=== PATIENT | female | born 1960 | race Caucasian/White ===

== ENCOUNTER 2016-12-30 21:21 | Emergency (ER) | payer OTHER ==
[2016-12-30 21:53] VITALS: BP 114/80; PULSE 104; TEMP 98.3; BMI 22.3
--- NOTE | 2016-12-30 22:45 | PDOC ---
History of Present Illness - General History Source: Patient Exam Limitations: No Limitations - History of Present Illness Initial Comments: 12/30/16 23:02 The patient is a 56 year old female with significant past medical history of B/ L kidney stone and asthma who presents to the ED for 3 days of back pain s/p injury. Patient reports trauma to the back and subsequently developed pain that radiates up and down her back. Denies paresthesias or bladder/bowel incontinence. She also reports developed left lower quadrant pain 3 days ago with associated bloating, but no nausea, vomiting, or diarrhea. She took acetaminophen with slight improvement. Patient reports today she had a fever tmax 100.2, which she took tylenol for with improvement. She also reports dizziness, chest discomfort, and frequency, but no hematuria or dysuria. The patient denies chills, cough, SOB, and palpitations. Allergies: aspirin Social History: No alcohol, tobacco, or drug use reported. Past Surgical History: bilateral foot sx PCP: Dr. Matthew Gonzalez <Caterina Richardson - Last Filed: 12/31/16 01:13> - General History Source: Patient <Ciro Edge - Last Filed: 12/31/16 01:20> - General Chief Complaint: Back Pain Stated Complaint: FEVER/DIZZINESS/BACK PAIN Time Seen by Provider: 12/30/16 22:31 Past History <Caterina Richardson - Last Filed: 12/31/16 01:13> - Past Medical History Anemia: No Asthma: Yes Cancer: No Cardiac Disorders: No CVA: No COPD: No CHF: No Dementia: No Diabetes: No GI Disorders: Yes (ACID REFLUX) Disorders: Yes (RENAL COLIC) HTN: No Hypercholesterolemia: No Kidney Stones: Yes Liver Disease: No Seizures: No Thyroid Disease: No - Surgical History Orthopedic Surgery: Yes (BILATERAL FOOT SURGERY) - Immunization History Immunization Up to Date: Yes - Psycho/Social/Smoking Cessation Hx Anxiety: No Suicidal Ideation: No Smoking Status: No Smoking History: Never smoked Have you smoked in the past 12 months: No Number of Cigarettes Smoked Daily: 0 If you are a former smoker, when did you quit?: 2009 Information on smoking cessation initiated: No Hx Alcohol Use: No Drug/Substance Use Hx: No Substance Use Type: None Hx Substance Use Treatment: No <Ciro Edge - Last Filed: 12/31/16 01:20> - Past Medical History Allergies/Adverse Reactions: Allergies Allergy/AdvReac Type Severity Reaction Status Date / Time shellfish derived Allergy Severe Difficulty Verified 12/30/16 21:49 Breathing aspirin Allergy Verified 12/30/16 21:49 Home Medications: Ambulatory Orders Cholecalciferol (Vitamin D3) [Vitamin D3] 2,000 unit PO DAILY 04/25/16 Meclizine HCl [Antivert -] 25 mg PO DAILY 04/25/16 Naproxen Sodium [Aleve] 220 mg PO BID 04/25/16 Pantoprazole Sodium [Protonix -] 40 mg PO DAILY #7 tablet.ec 04/25/16 Pantoprazole Sodium [Protonix -] 40 mg PO DAILY #7 tablet.ec 04/25/16 Pravastatin Sodium 20 mg PO DAILY 04/25/16 Levofloxacin [Levaquin -] 500 mg PO DAILY #10 tablet 12/31/16 Oxycodone HCl/Acetaminophen [Percocet 5-325 mg Tablet] 1 - 2 tab PO Q6H #20 tablet MDD 4 12/31/16 Review of Systems - Review of Systems Able to Perform ROS?: Yes Comments:: 12/30/16 23:04 CONSTITUTIONAL: +fever Absent: no chills, no fatigue EYES: Absent: visual changes ENT: Absent: ear pain, no sore throat CARDIOVASCULAR: +chest discomfort Absent: no palpitations RESPIRATORY: Absent: cough, no SOB GI: +left lower quadrant pain Absent: no nausea, no vomiting, no constipation, no diarrhea GENITOURINARY: +frequency Absent: dysuria, no hematuria MUSCULOSKELETAL: +back pain Absent: no arthralgia, no myalgia SKIN: Absent: rash NEURO: +dizziness Absent: headache <Caterina Richardson - Last Filed: 12/31/16 01:13> *Physical Exam - Vital Signs Last Vital Signs Temp Pulse Resp BP Pulse Ox 98.3 F 104 H 16 114/80 100 12/30/16 21:49 12/30/16 21:49 12/30/16 21:49 12/30/16 21:49 12/30/16 21:49 - Physical Exam Comments: 12/30/16 23:05 GENERAL: Well-appearing, well-nourished. No apparent distress. HEENT: Normocephalic, atraumatic. PERRL, EOM intact. CARDIOVASCULAR: Normal S1, S2. Regular rate and rhythm. PULMONARY: Clear to auscultation bilaterally. ABDOMEN: Soft, non-distended, non-tender. EXTREMITIES: Normal ROM in all four extremities. No gross deformities. SKIN: Warm, dry. No rash NEUROLOGICAL: No focal neurological deficits. <Caterina Richardson - Last Filed: 12/31/16 01:13> - Vital Signs Last Vital Signs Temp Pulse Resp BP Pulse Ox 98.3 F 104 H 16 114/80 100 12/30/16 21:49 12/30/16 21:49 12/30/16 21:49 12/30/16 21:49 12/30/16 21:49 <Ciro Edge - Last Filed: 12/31/16 01:20> ED Treatment Course - RADIOLOGY Radiograph Interpretation: 12/31/16 01:13 EXAM: CT abdomen and pelvis without contrast Reviewed by Imaging vocational nursing instructor: FINDINGS: Lung bases are clear. The visualized cardiac chambers are normal size and configuration. Normal unenhanced liver, gallbladder, pancreas, spleen, adrenal glands. There is moderate left hydronephrosis secondary to a 9 x 6 mm proximal left UPJ stone. No significant perinephric inflammation. Multiple additional small bilateral renal stones are noted. The stomach and abdominal small and large bowel are normal. There is no aortic aneurysm. There is no significant retroperitoneal lymphadenopathy. The pelvic small and large bowel are normal. The appendix is normal. The uterus and adnexal structures are normal. Urinary bladder is unremarkable. There is no pelvic free fluid. No discrete pelvic lymphadenopathy is identified. IMPRESSION: Moderate left hydronephrosis secondary to a 9 x 6 mm proximal left UPJ stone. Multiple additional small bilateral renal stones. <Caterina Richardson - Last Filed: 12/31/16 01:13> Medical Decision Making - Medical Decision Making 12/31/16 01:19 Dr. Edge: The scribe's documentation has been prepared under my direction and personally reviewed by me in its entirery. I confirm that the note above accurately reflects all work, treatment, procedures, and medical decision making performed by me. Pt with 9mm stone and moderate hydronephrosis on spiral CT scan. Pt states she can follow up with her doctor for referral to urology. Medication transmitted to her pharmacy <Ciro Edge - Last Filed: 12/31/16 01:20> *DC/Admit/Observation/Transfer - Attestations Scribe Attestion: 12/30/16 23:05 Documentation prepared by Caterina Richardson, acting as medical secretary for Ciro Edge MD/DO. <Caterina Richardson - Last Filed: 12/31/16 01:13> - Discharge Dispostion Admit: No <Ciro Edge - Last Filed: 12/31/16 01:20> Diagnosis at time of Disposition: Kidney stone on left side, Hydronephrosis - Discharge Dispostion Disposition: HOME Condition at time of disposition: Stable - Prescriptions Prescriptions: Levofloxacin [Levaquin -] 500 mg PO DAILY #10 tablet Oxycodone HCl/Acetaminophen [Percocet 5-325 mg Tablet] 1 - 2 tab PO Q6H #20 tablet MDD 4 - Referrals Referrals: Matthew Gonzalez [Primary Care Provider] - Marques Hartman MD [Staff Physician] - Juan M Swenson MD [Staff Physician] - - Patient Instructions Printed Discharge Instructions: Kidney Stones -- Adult, Hydronephrosis -- Adult Additional Instructions: Please take medication as directed. Follow up with your doctor or the doctors referred to you here in the department. Return if any problems Print Language: CAMBODIAN
[2016-12-30 23:36] LABS: URINE MARIJUANA THC NEGATIVE ng/ml (CUTOFF=50)
[2016-12-31] LABS: URINE APPEARANCE CLEAR; URINE BILIRUBIN NEGATIVE (NEGATIVE); URINE COLOR STRAW; URINE GLUCOSE (UA) NEGATIVE (NEGATIVE); URINE KETONE NEGATIVE (NEGATIVE); URINE NITRITE NEGATIVE (NEGATIVE); URINE PROTEIN NEGATIVE (NEGATIVE); URINE UROBILINOGEN NEGATIVE E.U./dl (0.2-1.0)
[2016-12-31 00:20] LABS: URINE BLOOD 2+ (NEGATIVE); URINE LEUK ESTERASE TRACE (NEGATIVE)
[2016-12-31 00:21] LABS: URINE MUCUS RARE; URINE RBC <1 /hpf (0-3); URINE WBC 6 /hpf (3-5)
[2016-12-31] MEDS ORDERED: OXYCODONE/APAP 5/325MG COMBO TABLET PO ONE (01:14)
[2016-12-31] MEDS ORDERED: LEVOFLOXACIN 500 MG TABLET (FP) PO ONE (01:14)
[2016-12-31] MEDS ORDERED: OXYCODONE/APAP 5/325MG COMBO TABLET ONE (01:22)
[2016-12-31] MEDS ORDERED: LEVOFLOXACIN 500 MG TABLET (FP) ONE (01:22)
== END 2016-12-31 01:33 | disposition home or self-care (01) ==
LOC: JER 21:21
DX: N13.2 Hydronephrosis with renal and ureteral calculous obstruction (principal); Z87.442 Personal history of urinary calculi
CPT/HCPCS: 74176; 80307; 81003; 81015; 99284-25

== ENCOUNTER 2016-12-31 11:15 | Inpatient (IN) | payer OTHER ==
--- NOTE | 2016-12-31 11:45 | PDOC ---
History of Present Illness - General History Source: Patient Exam Limitations: No Limitations - History of Present Illness Initial Comments: CHIEF COMPLAINT: 56 y/o afebrile female with PMH b/l kidney stones and asthma c /o worsened kidney stone pain. HISTORY OF PRESENT ILLNESS: The patient was seen here approximately 12 hours ago and was diagnosed with a 8mm left ureteral kidney stone with hydronephrosis. She was discharged to home with instructions to f/u with her PCP and urologist. She was seen at Dr. Gonzalez's office this morning and he sent her here as she now has a fever and her left back pain has worsened. She also admits to nausea. SHe denies vomiting, CP, SOB, abd pain, hematuria, dysuria. Vital signs on arrival are notable for pulse of 116 with temp of 99.7. REVIEW OF SYSTEMS: GENERAL/CONSTITUTIONAL: +fever. No weakness. No weight change. HEAD, EYES, EARS, NOSE AND THROAT: No change in vision. No ear pain or discharge. No sore throat. CARDIOVASCULAR: No chest pain or shortness of breath. RESPIRATORY: No cough, wheezing, or hemoptysis. GASTROINTESTINAL: +nausea. No vomiting, diarrhea, constipation. GENITOURINARY: No dysuria, frequency, or change in urination. MUSCULOSKELETAL: No joint or muscle swelling or pain. No neck pain. +left side and back pain. SKIN: No rash or easy bruising. NEUROLOGIC: No headache, vertigo, loss of consciousness, or loss of sensation. PHYSICAL EXAM: GENERAL: The patient is awake, alert, and fully oriented, crying in pain. HEAD: Normal with no signs of trauma. ENT: Pupils equal, round and reactive to light, extraocular movements intact, sclera anicteric, conjunctiva clear. Neck supple. LUNGS: Clear to auscultation bilaterally. Normal excursion. No respiratory distress or use of accessory muscles. CV: RRR, S1/S2, no MRG. Cap refill < 2 sec. ABDOMEN: Soft, non-distended, non-tender even to deep palpation, no hepatomegaly or splenomegaly, no masses. Pain reproduced with palpation of left flank. BACK: left CVA TTP. EXTREMITIES: Normal range of motion, no edema. NEUROLOGICAL: Normal speech, normal gait. CN II-XII grossly intact. PSYCH: Normal mood, normal affect. SKIN: Warm, dry, normal turgor, no rashes or lesions noted. <Aracelis Painter - Last Filed: 12/31/16 12:35> <Eliseo Stafford - Last Filed: 01/03/17 22:21> - General Chief Complaint: Pain Stated Complaint: KIDNEY STONE REVISIT Time Seen by Provider: 12/31/16 11:44 Past History - Past Medical History Anemia: No Asthma: Yes Cancer: No Cardiac Disorders: No CVA: No COPD: No CHF: No Dementia: No Diabetes: No GI Disorders: Yes (ACID REFLUX) Disorders: Yes (RENAL COLIC) HTN: No Hypercholesterolemia: No Kidney Stones: Yes Liver Disease: No Seizures: No Thyroid Disease: No - Surgical History Orthopedic Surgery: Yes (BILATERAL FOOT SURGERY) - Immunization History Immunization Up to Date: Yes - Psycho/Social/Smoking Cessation Hx Anxiety: No Suicidal Ideation: No Smoking Status: No Smoking History: Never smoked Have you smoked in the past 12 months: No Number of Cigarettes Smoked Daily: 0 If you are a former smoker, when did you quit?: 2009 Information on smoking cessation initiated: No Hx Alcohol Use: No Drug/Substance Use Hx: No Substance Use Type: None Hx Substance Use Treatment: No <Aracelis Painter - Last Filed: 12/31/16 12:35> <Eliseo Stafford - Last Filed: 01/03/17 22:21> - Past Medical History Allergies/Adverse Reactions: Allergies Allergy/AdvReac Type Severity Reaction Status Date / Time shellfish derived Allergy Severe Difficulty Verified 12/31/16 11:29 Breathing aspirin Allergy Verified 12/31/16 11:29 Home Medications: Ambulatory Orders Amoxicillin/Potassium Clav [Augmentin 875-125 Tablet] 1 each PO BID #10 tablet 01/02/17 *Physical Exam - Vital Signs Last Vital Signs Temp Pulse Resp BP Pulse Ox 99.7 F H 116 H 18 133/75 100 12/31/16 11:29 12/31/16 11:29 12/31/16 11:29 12/31/16 11:29 12/31/16 11:29 <Aracelis Painter - Last Filed: 12/31/16 12:35> - Vital Signs Last Vital Signs Temp Pulse Resp BP Pulse Ox 98.6 F 84 18 163/86 96 01/02/17 09:30 01/02/17 09:30 01/02/17 09:30 01/02/17 09:30 01/02/17 09:00 <Eliseo Stafford - Last Filed: 01/03/17 22:21> ED Treatment Course - LABORATORY CBC & Chemistry Diagram: 01/02/17 08:50 01/02/17 08:50 - Medications Given in the ED: ED Medications Discontinued Medications Generic Name Dose Route Start Last Admin Trade Name Leann PRN Reason Stop Dose Admin Acetaminophen 650 mg 12/31/16 16:00 12/31/16 18:52 Tylenol - PO 650 mg Q4H PRN Administration FEVER OR PAIN Acetaminophen 650 mg 12/31/16 21:39 01/02/17 12:54 Tylenol - PO 650 mg Q4H PRN Administration FEVER OR PAIN Heparin Sodium (Porcine) 5,000 unit 12/31/16 22:00 01/02/17 09:29 Heparin - SQ 5,000 unit BID BRIJESH Administration Hydromorphone HCl 1 mg 12/31/16 21:39 01/01/17 21:04 Dilaudid Injection - IVPB 1 mg Q4H PRN Administration PAIN Sodium Chloride 1,000 mls @ 1,000 mls/hr 12/31/16 12:22 12/31/16 12:26 Normal Saline - IV 12/31/16 13:21 1,000 mls/hr ASDIR STA Administration Potassium Chloride/Dextrose/Sod Cl 1,000 mls @ 125 mls/hr 12/31/16 18:00 18:50 D5-1/2ns+20 Meq Kcl - IV 125 mls/hr ASDIR BRIJESH Administration Potassium Chloride/Dextrose/Sod Cl 1,000 mls @ 125 mls/hr 12/31/16 21:39 21:05 D5-1/2ns+20 Meq Kcl - IV 125 mls/hr ASDIR BRIJESH Administration Ceftriaxone Sodium 50 mls @ 100 mls/hr 01/01/17 10:30 01/02/17 09:29 Rocephin 1gm Ivpb (Pre-Docked) IVPB 100 mls/hr DAILY BRIJESH Administration Ketorolac Tromethamine 30 mg 12/31/16 12:22 12/31/16 12:27 Toradol Injection - IVPUSH 12/31/16 12:23 30 mg ONCE ONE Administration Ondansetron HCl 4 mg 12/31/16 12:22 12/31/16 12:27 Zofran Injection IVPUSH 12/31/16 12:23 4 mg ONCE ONE Administration Piperacillin Sod/Tazobactam Sod 3.375 gm 12/31/16 18:00 12/31/16 17:12 Zosyn 3.375gm Ivpb (Pre-Docked) IVPB 01/01/17 02:01 3.375 gm Q8H-IV BRIJESH Administration Piperacillin Sod/Tazobactam Sod 3.375 gm 01/01/17 02:00 01/01/17 09:55 Zosyn 3.375gm Ivpb (Pre-Docked) IVPB 3.375 gm Q8H-IV BRIJESH Administration Protocol Tamsulosin HCl 0.4 mg 12/31/16 12:23 12/31/16 12:36 Flomax - PO 12/31/16 12:24 0.4 mg ONCE ONE Administration <Eliseo Stafford - Last Filed: 01/03/17 22:21> Medical Decision Making - Medical Decision Making A/P: 56 y/o afebrile female with 8mm left kidney stone returned to the ER for worsened pain and fever. Plan is as follows: 1. labs 2. UA/culture 3. IV toradol, zofran, fluids 4. Admisson Spoke with Dr. Huggins, construction foreman for Dr. Gonzalez. he accepts admission. He requests -[facility]. Pt made aware of the plan for admission and is amenable. She states she feels better after Toradol and does appear more comfortable. <Aracelis Painter - Last Filed: 12/31/16 12:35> - Medical Decision Making 01/03/17 22:21 The patient was seen and evaluated in conjunction with DESTINY Painter under my direct supervision, ancillary studies were reviewed. I agree with the plan as outlined by DESTINY Painter . <Eliseo Stafford - Last Filed: 01/03/17 22:21> *DC/Admit/Observation/Transfer - Discharge Dispostion Admit: Yes <Aracelis Painter - Last Filed: 12/31/16 12:35> <Eliseo Stafford - Last Filed: 01/03/17 22:21> Diagnosis at time of Disposition: Kidney stone on left side Hydronephrosis Qualifiers: Hydronephrosis type: with ureteral calculous obstruction Qualified Code(s): N13.2 - Hydronephrosis with renal and ureteral calculous obstruction - Discharge Dispostion Disposition: HOME - Prescriptions
[2016-12-31] MEDS ORDERED: KETOROLAC TROMETHAMINE 30 MG/1 ML VIAL ONE (11:56)
[2016-12-31] MEDS ORDERED: ONDANSETRON 4 MG/2 ML VIAL ONE (12:00)
[2016-12-31] MEDS ORDERED: ONDANSETRON 4 MG/2 ML VIAL IVPUSH ONE (12:22)
[2016-12-31] MEDS ORDERED: SODIUM CHLORIDE 1,000 ML IV STA (12:22)
[2016-12-31] MEDS ORDERED: KETOROLAC TROMETHAMINE 30 MG/1 ML VIAL IVPUSH ONE (12:22)
[2016-12-31] MEDS ORDERED: TAMSULOSIN HCL 0.4 MG CAP.ER.24H (FP) PO ONE (12:23)
[2016-12-31] MEDS ORDERED: TAMSULOSIN HCL 0.4 MG CAP.ER.24H (FP) ONE (12:31)
[2016-12-31 12:53] LABS: BASOPHIL 0.1 % (0-2.0); MCH 29.1 pg (25.7-33.7); MEAN PLT VOLUME 9.8 fl (7.5-11.1); NEUTROPHILS 87.7 % (42.8-82.8); PLATELET COUNT 168 K/MM3 (134-434); RDW 13.5 % (11.6-15.6)
[2016-12-31 13:35] LABS: ANION GAP 13 (8-16); BILIRUBIN,TOTAL 0.8 mg/dL (0.2-1.0); CALCIUM 9.3 mg/dL (8.5-10.1); CO2 25 mmol/L (21-32); CREATININE 0.7 mg/dL (0.55-1.02); GLUCOSE,RANDOM 105 mg/dL (74-106); SGOT/AST 20 U/L (15-37); SGPT/ALT 33 U/L (12-78); TOT PROT 7.4 g/dl (6.4-8.2)
[2016-12-31 13:36] LABS: ALK PHOS 86 U/L (45-117)
[2016-12-31 14:28] LABS: URINE APPEARANCE CLEAR; URINE BILIRUBIN NEGATIVE (NEGATIVE); URINE COLOR LTYELLOW; URINE GLUCOSE (UA) NEGATIVE (NEGATIVE); URINE KETONE 1+ (NEGATIVE); URINE NITRITE NEGATIVE (NEGATIVE); URINE PROTEIN NEGATIVE (NEGATIVE); URINE UROBILINOGEN NEGATIVE E.U./dl (0.2-1.0)
[2016-12-31 15:00] LABS: URINE BLOOD 2+ (NEGATIVE); URINE LEUK ESTERASE TRACE (NEGATIVE)
[2016-12-31 15:08] LABS: URINE MUCUS RARE; URINE RBC 3 /hpf (0-3); URINE WBC 11 /hpf (3-5)
[2016-12-31 15:16] VITALS: BMI 22.4
[2016-12-31] MEDS ORDERED: ACETAMINOPHEN 325 MG TABLET (FP) PO PRN (16:00)
[2016-12-31] MEDS ORDERED: HYDROmorphone HCL CARPU-JECT 1 MG/1 ML DISP.SYRIN IVPB PRN (16:00)
[2016-12-31] MEDS ORDERED: ONDANSETRON 4 MG/2 ML VIAL IVPB PRN ×2 (16:00→21:39)
[2016-12-31] MEDS ORDERED: PIPERACILLIN/TAZOB 3.375 GM/50 ML PRE-DOCKED IVPB SCH (18:00)
[2016-12-31] MEDS ORDERED: D5-1/2NS+20 MEQ KCL - 1,000 ML IV SCH (18:00)
--- NOTE | 2016-12-31 19:54 | CONSULT ---
Consult - text type - Consultation Consultation Note: CC: left ureteral stone with hydronephrosis and fever and intractable colic hpi: Patient is a 56 yo female with one day history of left renal colic with nausea, vomiting and fever. The patient was seen in the ER and sent home. She was seen by her pmd who noted a ferver and she was sent back to the ER. The patient was noted to have a low grade fever and was tachycardic.The patient has not had adequate pain control and is unable to maintain a diet. PE abd-severe left CVAT; no rebound or guarding labs and CT scan reviewed discussed with patient x 30 minutes imp left ureteral stone with high grade hydroureteronephrosis secondary to 8mm proximal stone with intractable pain and in obvious distress with episode of fever plan patient is emergently taken to the OR for left ureteroscopy and stent placement
[2016-12-31] MEDS ORDERED: GENTAMICIN SO4 80 MG/2 ML VIAL IVPB ONE (20:05)
[2016-12-31] MEDS ORDERED: LACTATED RINGERS SOLUTION 1,000 ML IV SCH (20:15)
[2016-12-31] MEDS ORDERED: MIDAZOLAM HCL 2 MG/2 ML SINGLE DOSE VIAL ONE (20:17)
[2016-12-31] MEDS ORDERED: SUCCINYLCHOLINE CHLORIDE 200 MG/10 ML VIAL ONE (20:17)
[2016-12-31] MEDS ORDERED: PROPOFOL 20 ML ONE ×2 (20:17)
--- NOTE | 2016-12-31 21:03 | OP ---
Operative Note - Note: Operative Date: 12/31/16 Pre-Operative Diagnosis: left hydroureternephrosis Operation: cystoscopy/left retrograde pyelogram/left ureteroscopic stone basketing/left stent placement Findings: 10mm left upper ureteral impacted stone with mild pyonephrosis when unobstructed ; stone dislodged with ureteroscope; due to pyonephrosis and prior fever further attempt at basketing or laser lithotripsy is contraindicated Post-Operative Diagnosis: Same as Pre-op Surgeon: Torres Esparza Anesthesia: General Drains & Tubes with Location: 6 fr/22 cm left ureteral stent Operative Report Dictated: Yes
[2016-12-31] MEDS ORDERED: DEXAMETHASONE SOD PHOSPHATE 4 MG/1 ML VIAL ONE (21:04)
[2016-12-31] MEDS ORDERED: GENTAMICIN SO4 80 MG/2 ML VIAL ONE (21:04)
[2016-12-31] MEDS ORDERED: HEPARIN NA (PORCINE) 5,000 UNITS/ML 1ML VIAL SQ SCH (22:00)
[2016-12-31] MEDS: HEPARIN NA (PORCINE) 5,000 UNITS/ML 1ML VIAL SQ SCH (22:45)
[2016-12-31] MEDS: D5-1/2NS+20 MEQ KCL - 1,000 ML IV SCH (22:48)
[2016-12-31] MEDS: HYDROmorphone HCL CARPU-JECT 1 MG/1 ML DISP.SYRIN IVPB PRN (23:53)
[2017-01-01] MEDS ORDERED: PIPERACILLIN/TAZOB 3.375 GM/50 ML PRE-DOCKED IVPB SCH ×2 (02:00→10:00)
[2017-01-01] MEDS: PIPERACILLIN/TAZOB 3.375 GM/50 ML PRE-DOCKED IVPB SCH ×2 (02:35→09:55)
[2017-01-01] MEDS: D5-1/2NS+20 MEQ KCL - 1,000 ML IV SCH ×2 (05:55→21:05)
[2017-01-01] MEDS: HYDROmorphone HCL CARPU-JECT 1 MG/1 ML DISP.SYRIN IVPB PRN ×2 (05:56→21:04)
--- NOTE | 2017-01-01 07:58 | OP ---
DATE OF OPERATION: 12/31/2016 PREOPERATIVE DIAGNOSIS: Left hydronephrosis secondary to a left ureteral stone measuring 1 cm. POSTOPERATIVE DIAGNOSIS: Left hydronephrosis secondary to a left ureteral stone measuring 1 cm. PROCEDURE: Cystoscopy, left retrograde pyelogram, left ureteroscopic stone manipulation, and left stent placement. SURGEON: Torres Leo MD ANESTHESIA: General. DESCRIPTION OF PROCEDURE: The patient is brought in the operating room emergently. The patient is brought emergently to the operating room due to severe, intractable left renal colic and inability to maintain a diet as well as low-grade fever with an elevated white blood count. The patient is in distress on exam. The patient understands the risks and benefits of the procedure. and placed in the supine position on the operating room table. The patient is given general anesthesia and is given a dose of gentamicin preoperatively. The patient is on Zosyn and received 2 doses prior to the operating room. The patient is in a dorsal lithotomy position and prepped and draped in the usual sterile manner. A flat plate done fluoroscopically shows a 1-cm upper ureteral stone. Cystoscopy is performed. No evidence of masses or stones in the bladder are seen. A retrograde pyelogram shows a high-grade hydroureteronephrosis. At this point, attempt at passing a wire in the kidney are unsuccessful. The ureteroscopy was performed, and with difficulty, a wire is passed proximally into the kidney. The stone is then manipulated and pushed into the kidney. Mild pyonephrosis is noted. It is decided to avoid further manipulation at this time in order to avoid a septic episode. The ureteroscope is removed. At this time, a 6-Angolan 22-cm stent is placed over the wire utilizing the Seldinger technique. No complications are noted. The patient tolerated the procedure very well. The disposition of the patient was to the recovery room. Kerry [id number]
[2017-01-01 08:57] LABS: BASOPHIL 0.2 % (0-2.0); MCH 28.8 pg (25.7-33.7); MEAN CELL VOLUME 87.5 fl (80-96); NEUTROPHILS 93.7 % (42.8-82.8); PLATELET COUNT 148 K/MM3 (134-434); RDW 14.1 % (11.6-15.6); WHITE BLOOD COUNT 12.4 K/mm3 (4.0-10.0)
--- NOTE | 2017-01-01 08:58 | HP ---
Admitting History and Physical - Admission History of Present Illness: 56 y/o afebrile female with PMH b/l kidney stones and asthma c/o worsened kidney stone pain. The patient was seen in er and was diagnosed with a 8mm left ureteral kidney stone with hydronephrosis. She was discharged to home with instructions to f/u with her PCP and urologist. She was seen at Dr. Gonzalez's office this morning and he sent her here as she now has a fever and her left back pain has worsened. She also admits to nausea. SHe denies vomiting, CP, SOB, abd pain, hematuria, dysuria. Due to high grade hydro she was taken emergently to the or This am c/o weakness and dizziness - Past Medical History Cardiovascular: Yes: Other (DENIES) Pulmonary: Yes: Asthma Renal/: Yes: Renal Calculi ...LMP Comment: post menopause ...: No - Smoking History Smoking history: Never smoked Have you smoked in the past 12 months: No Aproximately how many cigarettes per day: 0 If you are a former smoker, when did you quit?: 2009 - Alcohol/Substance Use Hx Alcohol Use: No Home Medications - Allergies Allergies/Adverse Reactions: Allergies Allergy/AdvReac Type Severity Reaction Status Date / Time shellfish derived Allergy Severe Difficulty Verified 12/31/16 11:29 Breathing aspirin Allergy Verified 12/31/16 11:29 - Home Medications Home Medications: Ambulatory Orders Amoxicillin/Potassium Clav [Augmentin 875-125 Tablet] 1 each PO BID #10 tablet 01/02/17 Review of Systems - Review of Systems Cardiovascular: denies: Chest Pain, Shortness of Breath Respiratory: denies: SOB on Exertion, Wheezing Gastrointestinal: reports: Abdominal Pain (flank), Nausea Genitourinary: reports: Other (flank pain) Musculoskeletal: reports: Back Pain Physical Examination Vital Signs: Vital Signs Temperature 98.0 F 01/01/17 06:00 Pulse Rate 65 01/01/17 06:00 Respiratory Rate 20 01/01/17 06:00 Blood Pressure 114/64 01/01/17 06:00 O2 Sat by Pulse Oximetry (%) 100 12/31/16 22:10 Cardiovascular: Yes: Regular Rate and Rhythm Respiratory: Yes: Regular, CTA Bilaterally Gastrointestinal: Yes: Normal Bowel Sounds, Soft. No: Tenderness Edema: No Imaging - Results Ultrasound: Report Reviewed Problem List - Problems (1) Kidney stone on left side Assessment/Plan: Operative Date: 12/31/16 Pre-Operative Diagnosis: left hydroureternephrosis Operation: cystoscopy/left retrograde pyelogram/left ureteroscopic stone basketing/left stent placement Findings: 10mm left upper ureteral impacted stone with mild pyonephrosis when unobstructed ; stone dislodged with ureteroscope; due to pyonephrosis and prior fever further attempt at basketing or laser lithotripsy is contraindicated Post-Operative Diagnosis: Same as Pre-op Surgeon: Torres Esparza Code(s): N20.0 - CALCULUS OF KIDNEY (2) Hydronephrosis Assessment/Plan: ABOVE Code(s): N13.30 - UNSPECIFIED HYDRONEPHROSIS Qualifiers: Hydronephrosis type: with ureteral calculous obstruction Qualified Code(s): N13.2 - Hydronephrosis with renal and ureteral calculous obstruction (3) Asthma Assessment/Plan: NEBS Code(s): J45.909 - UNSPECIFIED ASTHMA, UNCOMPLICATED (4) Dizziness Assessment/Plan: EKG LABS IVF Code(s): R42 - DIZZINESS AND GIDDINESS (5) Sepsis Assessment/Plan: IVF IV ABX ID CONSULT Code(s): A41.9 - SEPSIS, UNSPECIFIED ORGANISM
[2017-01-01 09:36] LABS: ANION GAP 10 (8-16); CALCIUM 8.7 mg/dL (8.5-10.1); CO2 24 mmol/L (21-32); GLUCOSE,RANDOM 191 mg/dL (74-106); SGOT/AST 19 U/L (15-37); SGPT/ALT 30 U/L (12-78)
[2017-01-01 09:39] LABS: ALK PHOS 69 U/L (45-117); BILIRUBIN,TOTAL 0.7 mg/dL (0.2-1.0); CREATININE 0.6 mg/dL (0.55-1.02); TOT PROT 6.3 g/dl (6.4-8.2)
--- NOTE | 2017-01-01 09:42 | PN ---
Progress Note, Physician Chief Complaint: ID Full note dictated Impacted stone with stent placement Comfortable T max 102 - Current Medication List Current Medications: Active Medications Acetaminophen (Tylenol -) 650 mg PO Q4H PRN PRN Reason: FEVER OR PAIN Heparin Sodium (Porcine) (Heparin -) 5,000 unit SQ BID BRIJESH Last Admin: 12/31/16 22:45 Dose: 5,000 unit Hydromorphone HCl (Dilaudid Injection -) 1 mg IVPB Q4H PRN PRN Reason: PAIN Last Admin: 01/01/17 05:56 Dose: 1 mg Potassium Chloride/Dextrose/Sod Cl (D5-1/2ns+20 Meq Kcl -) 1,000 mls @ 125 mls/ hr IV ASDIR BRIJESH Last Admin: 01/01/17 05:55 Dose: 125 mls/hr Ondansetron HCl (Zofran Injection) 4 mg IVPB Q6H PRN PRN Reason: NAUSEA Piperacillin Sod/Tazobactam Sod (Zosyn 3.375gm Ivpb (Pre-Docked)) 3.375 gm IVPB Q8H-IV BRIJESH PRN Reason: Protocol Last Admin: 01/01/17 02:35 Dose: 3.375 gm - Objective Vital Signs: Vital Signs Temperature 98.0 F 01/01/17 06:00 Pulse Rate 65 01/01/17 06:00 Respiratory Rate 20 01/01/17 06:00 Blood Pressure 114/64 01/01/17 06:00 O2 Sat by Pulse Oximetry (%) 100 12/31/16 22:10 Constitutional: Yes: Well Nourished, No Distress Cardiovascular: Yes: S1, S2 Respiratory: Yes: WNL, Regular, CTA Bilaterally Gastrointestinal: Yes: WNL, Normal Bowel Sounds, Soft Genitourinary: Yes: Other (Let flank and LUQ pain palpation) Labs: CBC, BMP 01/01/17 07:45 01/01/17 07:45 Problem List - Problems (1) Kidney stone on left side Code(s): N20.0 - CALCULUS OF KIDNEY (2) Sepsis Code(s): A41.9 - SEPSIS, UNSPECIFIED ORGANISM (3) UTI (urinary tract infection) Code(s): N39.0 - URINARY TRACT INFECTION, SITE NOT SPECIFIED Assessment/Plan Laboratory Tests 12/31/16 12/31/16 12:46 13:00 WBC 17.0 H D RBC 4.52 Plt Count 168 Ur Leukocyte Esterase Trace H Urine RBC 3 Urine WBC 11 Assessment Fever with kidney stone Post cysto with stent Plan Pending cultures continue Ceftriaxone Bret JAIN
[2017-01-01] MEDS: HEPARIN NA (PORCINE) 5,000 UNITS/ML 1ML VIAL SQ SCH ×2 (09:55→21:04)
[2017-01-01 10:15] LABS: TROPONIN I < 0.02 ng/ml (0.00-0.05)
--- NOTE | 2017-01-01 10:17 | CONS ---
DATE OF CONSULTATION: DATE OF DICTATION: 01/01/2017 HISTORY OF PRESENT ILLNESS: This is a 56-year-old female originally from [place] who was admitted with the chief complaint of 1-day history of left renal colic with nausea, vomiting, and fever to 102. She was referred by her primary medical doctor for further evaluation. Her initial abdominal exam revealed temperature as well as severe left CVA tenderness. Clinical impression at the time of admission was left ureteral stone with high-grade hydroureteronephrosis secondary to an 8-mm proximal stone with intractable pain and fever. She was taken to the operating room yesterday by Dr. Samir Leo of Urology. Postoperative diagnosis left hydronephrosis secondary to left ureteral stone. She underwent cystoscopy as well as stone manipulation and placement of a left stent. She was empirically treated with piperacillin and tazobactam. PAST MEDICAL HISTORY: Negative for diabetes, coronary artery disease, heart disease. MEDICATIONS: None. ALLERGIES: None known. SOCIAL HISTORY: Former smoker; quit in 2009. Working in the [email or web address] for many years. Says HIV tested negative but not sure. FAMILY HISTORY: Reviewed, noncontributory. REVIEW OF SYSTEMS:Respiratory: No cough, shortness of breath. Cardiac: No chest pain, palpitations, murmur. Gastrointestinal: Nausea, vomiting on admission as noted. No hematemesis, diarrhea. Genitourinary: No dysuria. Gross hematuria. PHYSICAL EXAMINATION:General: She is a well-nourished, pleasant woman. Vital Signs: Temperature 98.0, pulse 65, blood pressure 114/64, respirations 20. Neck: Supple. Lungs: Clear to P and A. Heart: S1, S2, regular rhythm. No audible murmur or gallop. Abdomen: Soft. Positive bowel sounds. Not distended. Tenderness noted in the left upper quadrant, left flank. Extremities: No clubbing, cyanosis, or edema. LABORATORY DATA: White count 17,000, hemoglobin 13.2, platelets 168. BUN 10, creatinine 0.7. Liver enzymes within normal limits. Urinalysis: Trace leukocyte esterase, 2+ blood, 3 RBCs, 1 WBC. Blood cultures this morning no growth. Urine culture pending. Chest x-ray shows no pulmonary pathology. ASSESSMENT: A 56-year-old woman presents with left renal colic, large kidney stone with fever, now status post cystoscopy with stent placement and manipulation of stone. Final cultures pending. RECOMMENDATIONS: Would continue ceftriaxone 1 g IV every 24 hours pending final cultures. Possible switch to oral therapy tomorrow. Oral antibiotic treatment tomorrow based on final culture reports. ANMOL ADAM M.D. ALPHONSE/[id number]
[2017-01-01] MEDS: CEFTRIAXONE 50 ML IVPB SCH (11:19)
--- NOTE | 2017-01-01 14:00 | PN ---
Progress Note (short form) - Note Progress Note: progress Note: Anesthesia post op note,POD#1 S/P cystoscopy and stent placement, under GETA. Pat seen and examined,VSS. No apparent post anesthesia complications. Signed off.
--- NOTE | 2017-01-01 14:49 | EKG ---
Test Reason : Blood Pressure : / mmHG Vent. Rate : 059 BPM Atrial Rate : 059 BPM P-R Int : 142 ms QRS Dur : 080 ms QT Int : 416 ms P-R-T Axes : 037 015 046 degrees QTc Int : 411 ms SINUS BRADYCARDIA OTHERWISE NORMAL ECG WHEN COMPARED WITH ECG OF 31-DEC-2016 20:04, VENT. RATE HAS DECREASED BY 37 BPM Confirmed by THOMAS GAINES MD ([id number]) on 01/01/2017 2:49:21 PM Referred By: Eveline PALAFOX Confirmed By:THOMAS GAINES MD
--- NOTE | 2017-01-01 14:56 | EKG ---
Test Reason : Blood Pressure : / mmHG Vent. Rate : 096 BPM Atrial Rate : 096 BPM P-R Int : 150 ms QRS Dur : 070 ms QT Int : 340 ms P-R-T Axes : 050 004 036 degrees QTc Int : 429 ms NORMAL SINUS RHYTHM POSSIBLE LEFT ATRIAL ENLARGEMENT BORDERLINE ECG WHEN COMPARED WITH ECG OF 25-APR-2016 15:47, NO SIGNIFICANT CHANGE WAS FOUND Confirmed by THOMAS GAINES MD ([id number]) on 01/01/2017 2:55:41 PM Referred By: Confirmed By:THOMAS GAINES MD
[2017-01-01] MEDS: ACETAMINOPHEN 325 MG TABLET (FP) PO PRN (20:27)
--- NOTE | 2017-01-02 09:05 | DS ---
Physical Examination Vital Signs: Vital Signs Temperature 98.8 F 01/02/17 06:00 Pulse Rate 73 01/02/17 06:00 Respiratory Rate 20 01/02/17 06:00 Blood Pressure 129/79 01/02/17 06:00 O2 Sat by Pulse Oximetry (%) 96 01/01/17 21:00 Findings/Remarks: NO COMPLAINTS Cardiovascular: Yes: Regular Rate and Rhythm Respiratory: Yes: Regular, CTA Bilaterally Gastrointestinal: Yes: Normal Bowel Sounds, Soft Discharge Summary Reason For Visit: HYDRONEPHROSIS,CALCULUS OF LEFT KIDENY Current Active Problems Asthma (Acute) Dizziness (Acute) Hydronephrosis (Acute) Kidney stone on left side (Acute) Sepsis (Acute) UTI (urinary tract infection) (Acute) Hospital Course: 56 y/o afebrile female with PMH b/l kidney stones and asthma c/o worsened kidney stone pain. The patient was seen in er and was diagnosed with a 8mm left ureteral kidney stone with hydronephrosis. She was discharged to home with instructions to f/u with her PCP and urologist. She was seen at Dr. Gonzalez's office this morning and he sent her here as she now has a fever and her left back pain has worsened. She also admits to nausea. SHe denies vomiting, CP, SOB, abd pain, hematuria, dysuria. Due to high grade hydro she was taken emergently to the or This am c/o weakness and dizziness - Past Medical History Cardiovascular: Yes: Other (DENIES) Pulmonary: Yes: Asthma Renal/: Yes: Renal Calculi ...LMP Comment: post menopause ...: No - Smoking History Smoking history: Never smoked Have you smoked in the past 12 months: No Aproximately how many cigarettes per day: 0 If you are a former smoker, when did you quit?: 2009 Problems (1) Kidney stone on left side Assessment/Plan: Operative Date: 12/31/16 Pre-Operative Diagnosis: left hydroureternephrosis Operation: cystoscopy/left retrograde pyelogram/left ureteroscopic stone basketing/left stent placement Findings: 10mm left upper ureteral impacted stone with mild pyonephrosis when unobstructed ; stone dislodged with ureteroscope; due to pyonephrosis and prior fever further attempt at basketing or laser lithotripsy is contraindicated Post-Operative Diagnosis: Same as Pre-op Surgeon: Torres Esparza Code(s): N20.0 - CALCULUS OF KIDNEY (2) Hydronephrosis Assessment/Plan: ABOVE Code(s): N13.30 - UNSPECIFIED HYDRONEPHROSIS Qualifiers: Hydronephrosis type: with ureteral calculous obstruction Qualified Code(s): N13.2 - Hydronephrosis with renal and ureteral calculous obstruction (3) Asthma Assessment/Plan: NEBS Code(s): J45.909 - UNSPECIFIED ASTHMA, UNCOMPLICATED (4) Dizziness--RESOLVED Assessment/Plan: EKG LABS DC IVF Code(s): R42 - DIZZINESS AND GIDDINESS (5) Sepsis Assessment/Plan: DC IVF IV ABX--DC AND PO ID CONSULT Code(s): A41.9 - SEPSIS, UNSPECIFIED ORGANISM - Home Medications Comprehensive Discharge Medication List: Ambulatory Orders Amoxicillin/Potassium Clav [Augmentin 875-125 Tablet] 1 each PO BID #10 tablet 01/02/17
[2017-01-02 09:12] LABS: BASOPHIL 0.5 % (0-2.0); EOSINOPHIL 0.4 % (0-4.5); MCH 29.4 pg (25.7-33.7); MCHC 33.2 g/dl (32.0-36.0); MEAN CELL VOLUME 88.6 fl (80-96); MEAN PLT VOLUME 9.3 fl (7.5-11.1); NEUTROPHILS 78.3 % (42.8-82.8); PLATELET COUNT 169 K/MM3 (134-434); WHITE BLOOD COUNT 9.3 K/mm3 (4.0-10.0)
[2017-01-02 09:23] LABS: ANION GAP 8 (8-16); CALCIUM 8.9 mg/dL (8.5-10.1); CO2 25 mmol/L (21-32); GLUCOSE,RANDOM 83 mg/dL (74-106)
[2017-01-02 09:26] LABS: CREATININE 0.5 mg/dL (0.55-1.02)
[2017-01-02] MEDS: HEPARIN NA (PORCINE) 5,000 UNITS/ML 1ML VIAL SQ SCH (09:29)
[2017-01-02] MEDS: CEFTRIAXONE 50 ML IVPB SCH (09:29)
[2017-01-02 09:31] VITALS: BP 163/86; PULSE 84; TEMP 98.6
--- NOTE | 2017-01-02 10:19 | PN ---
Progress Note, Physician Chief Complaint: ID Feels well - Current Medication List Current Medications: Active Medications Acetaminophen (Tylenol -) 650 mg PO Q4H PRN PRN Reason: FEVER OR PAIN Last Admin: 01/01/17 20:27 Dose: 650 mg Heparin Sodium (Porcine) (Heparin -) 5,000 unit SQ BID [facility] Last Admin: 01/02/17 09:29 Dose: 5,000 unit Ceftriaxone Sodium (Rocephin 1gm Ivpb (Pre-Docked)) 50 mls @ 100 mls/hr IVPB DAILY [facility] Last Admin: 01/02/17 09:29 Dose: 100 mls/hr Ondansetron HCl (Zofran Injection) 4 mg IVPB Q6H PRN PRN Reason: NAUSEA - Objective Vital Signs: Vital Signs Temperature 98.6 F 01/02/17 09:30 Pulse Rate 84 01/02/17 09:30 Respiratory Rate 18 01/02/17 09:30 Blood Pressure 163/86 01/02/17 09:30 O2 Sat by Pulse Oximetry (%) 96 01/01/17 21:00 Constitutional: Yes: Well Nourished, No Distress Neck: Yes: WNL, Supple Cardiovascular: Yes: S1, S2 Respiratory: Yes: WNL, Regular, CTA Bilaterally Gastrointestinal: Yes: WNL, Normal Bowel Sounds, Soft. No: Tenderness Edema: No Labs: CBC, BMP 01/02/17 08:50 01/02/17 08:50 Problem List - Problems (1) Kidney stone on left side Code(s): N20.0 - CALCULUS OF KIDNEY (2) Sepsis Code(s): A41.9 - SEPSIS, UNSPECIFIED ORGANISM (3) UTI (urinary tract infection) Code(s): N39.0 - URINARY TRACT INFECTION, SITE NOT SPECIFIED Assessment/Plan Microbiology 12/31/16 13:00 Urine - Urine Clean Catch Urine Culture - Final 12/31/16 17:45 Blood - Peripheral Venous Blood Culture - Preliminary NO GROWTH OBTAINED AFTER 24 HOURS, INCUBATION TO CONTINUE FOR 4 DAYS. 12/31/16 17:40 Blood - Peripheral Venous Blood Culture - Preliminary NO GROWTH OBTAINED AFTER 24 HOURS, INCUBATION TO CONTINUE FOR 4 DAYS. Laboratory Tests 12/31/16 01/02/17 01/02/17 13:00 08:50 08:50 WBC 9.3 Hgb 11.8 Plt Count 169 BUN 6 L D Creatinine 0.5 L Urine WBC 11 Assessment Kidney stone Left ureteral stent Cultures neg No fever Plan Can stop antibiotics Discharge planning Bret JAIN
[2017-01-02] MEDS: ACETAMINOPHEN 325 MG TABLET (FP) PO PRN (12:54)
== END 2017-01-02 13:25 | disposition home or self-care (01) | DRG 720 ==
LOC: JER 11:15 → JERBED 12:30 → J6S 14:03
PROVIDERS: ADMIT Family Medicine; ATTEND Family Medicine
PROC: 0T778DZ Dilation of Left Ureter with Intraluminal Device, Via Natural or Artificial Opening Endoscopic (ICD-10-PCS; principal; 2016-12-31 17:45)
PROC: BT1FYZZ Fluoroscopy of Left Kidney, Ureter and Bladder using Other Contrast (ICD-10-PCS; 2016-12-31 17:45)
DX: A41.9 Sepsis, unspecified organism (principal); N13.2 Hydronephrosis with renal and ureteral calculous obstruction; J45.909 Unspecified asthma, uncomplicated; R42 Dizziness and giddiness; N39.0 Urinary tract infection, site not specified
CPT/HCPCS: 36415; 71010-TC; 76000-TC; 80048; 80053; 81003; 81015; 82550; 84484; 85025; 87040; 87086; 93005; 93010; 94760; 99283-25; J1644

== ENCOUNTER 2017-01-17 09:24 | Day surgery (SDC) | payer OTHER ==
[2017-01-13 11:59] VITALS: BMI 23.0
[2017-01-17] MEDS ORDERED: MIDAZOLAM HCL 2 MG/2 ML SINGLE DOSE VIAL ONE (11:59)
[2017-01-17] MEDS ORDERED: PROPOFOL 20 ML ONE (11:59)
[2017-01-17] MEDS ORDERED: LIDOCAINE HCL/PF 2% SDV 5ML VIAL ONE (12:28)
[2017-01-17] MEDS ORDERED: LEVOFLOXACIN 500 MG IVPB 100 ML IVPB ONE ×2 (12:29→12:31)
[2017-01-17] MEDS ORDERED: LACTATED RINGERS SOLUTION 1,000 ML IV SCH (12:30)
[2017-01-17] MEDS ORDERED: ACETAMINOPHEN 325 MG TABLET (FP) PO PRN (12:30)
[2017-01-17] MEDS ORDERED: ONDANSETRON 4 MG/2 ML VIAL IVPUSH PRN (12:30)
[2017-01-17] MEDS ORDERED: oxyCODONE HCL 5 MG TABLET PO PRN (12:30)
[2017-01-17] MEDS ORDERED: LEVOFLOXACIN 500 MG PREMIX BAG IVPB ONE (12:30)
--- NOTE | 2017-01-17 13:32 | OP ---
Operative Note - Note: Operative Date: 01/17/17 Pre-Operative Diagnosis: left renal stone Operation: left eswl Findings: 7mm left mid-pole stone Post-Operative Diagnosis: Same as Pre-op Surgeon: Torres Esparza Anesthesia: General Operative Report Dictated: Yes
[2017-01-17 15:02] VITALS: TEMP 98.1
[2017-01-17 18:46] VITALS: BP 122/65; PULSE 72
--- NOTE | 2017-01-18 14:38 | OP ---
DATE OF OPERATION: 01/17/2017 PREOPERATIVE DIAGNOSIS: Left renal stone. POSTOPERATIVE DIAGNOSIS: Left renal stone. PROCEDURE: Left extracorporeal shock wave lithotripsy. ATTENDING: Torres Leo MD ANESTHESIA: General. DESCRIPTION OF OPERATION: Patient was brought in the operating room, placed in supine position on the operating room table. Ultrasonography and fluoroscopy were performed. A 7-mm left mid-pole stone was seen. General anesthesia and antibiotics were then administered. Extracorporeal shock wave lithotripsy was then performed; 3000 impulses at 20 joules of power were administered to the stone. Excellent fragmentation was noted on ultrasonography and fluoroscopy. No complications were noted. DISPOSITION: The patient went to recovery room. Kerry [id number]
== END 2017-01-17 17:00 | disposition home or self-care (01) ==
LOC: JASU-SURG 09:24
PROVIDERS: ATTEND Urology
PROC: 0TF4XZZ Fragmentation in Left Kidney Pelvis, External Approach (ICD-10-PCS; principal; 2017-01-17 11:15)
DX: N20.0 Calculus of kidney (principal)
CPT/HCPCS: 94760

== ENCOUNTER 2018-02-06 11:33 | Emergency (ER) | payer OTHER ==
[2018-02-06 11:46] VITALS: BP 176/93; PULSE 92; TEMP 98.4; BMI 25.4
[2018-02-06] MEDS ORDERED: DIPHTH,PERTUSS(ACELL),TET 0.5 ML DISP.SYRIN IM ONE (12:09)
[2018-02-06] MEDS ORDERED: ACETAMINOPHEN 325 MG TABLET (FP) PO ONE (12:25)
--- NOTE | 2018-02-06 12:28 | PDOC ---
History of Present Illness - General Chief Complaint: Injury Stated Complaint: LT FOOT WOUND Time Seen by Provider: 02/06/18 12:21 History Source: Patient Exam Limitations: No Limitations - History of Present Illness Initial Comments: 02/06/18 12:26 57 yr female with c/o stepping on a nail today at work wearing shoes to left foot. tetanus unknown Lower Ext. Injury Location - Specific Injury Location Foot: left foot soft tissue tenderness Past History - Past Medical History Allergies/Adverse Reactions: Allergies Allergy/AdvReac Type Severity Reaction Status Date / Time shellfish derived Allergy Severe Difficulty Verified 02/06/18 11:43 Breathing aspirin Allergy Verified 02/06/18 11:43 Home Medications: Ambulatory Orders NK [No Known Home Medication] 02/06/18 Anemia: No Asthma: Yes Cancer: No Cardiac Disorders: No CVA: No COPD: No CHF: No Dementia: No Diabetes: No GI Disorders: Yes (ACID REFLUX) Disorders: Yes (RENAL COLIC) HTN: No Hypercholesterolemia: Yes Kidney Stones: Yes Liver Disease: No Seizures: No Thyroid Disease: No - Surgical History Appendectomy: No Cardiac Surgery: No Cholecystectomy: No Lung Surgery: No Neurologic Surgery: No Orthopedic Surgery: Yes (BILATERAL FOOT SURGERY) - Immunization History Immunization Up to Date: Yes - Suicide/Smoking/Psychosocial Hx Smoking Status: No Smoking History: Never smoked Have you smoked in the past 12 months: No Number of Cigarettes Smoked Daily: 0 If you are a former smoker, when did you quit?: 2009 Information on smoking cessation initiated: No Hx Alcohol Use: No Drug/Substance Use Hx: No Substance Use Type: None Hx Substance Use Treatment: No Review of Systems - Review of Systems Able to Perform ROS?: Yes Is the patient limited Telugu proficient: No Constitutional: No: Symptoms Reported HEENTM: No: Symptoms Reported Respiratory: No: Symptoms reported Cardiac (ROS): No: Symptoms Reported ABD/GI: No: Symptoms Reported Integumentary: Yes: Symptoms Reported *Physical Exam - Vital Signs Last Vital Signs Temp Pulse Resp BP Pulse Ox 98.4 F 92 H 18 176/93 97 02/06/18 11:44 02/06/18 11:44 02/06/18 11:44 02/06/18 11:44 02/06/18 11:44 - Physical Exam General Appearance: Yes: Nourished, Appropriately Dressed HEENT: positive: EOMI, KADI Neck: positive: Supple Respiratory/Chest: positive: Lungs Clear, Normal Breath Sounds Extremity: positive: Normal Capillary Refill, Tender (plantar surface left foot no bleeding no swelling clean and dry ) Integumentary: positive: Normal Color, Dry, Warm Procedures - Laceration/Wound Repair Left Plantar Foot Wound Length: to 2.5 cm Wound Explored: clean Irrigated w/ Saline: Yes Betadine Prep: Yes Progress: 02/06/18 13:06 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 pt understands the dc plan all questions asked and answered at discharge. *DC/Admit/Observation/Transfer Diagnosis at time of Disposition: Puncture wound of plantar aspect of foot Qualifiers: Encounter type: initial encounter Laterality: left Qualified Code(s): S91.332A - Puncture wound without foreign body, left foot, initial encounter - Discharge Dispostion Disposition: HOME Condition at time of disposition: Good - Referrals Referrals: Matthew Gonzalez [Primary Care Provider] - Edvin Davila MD [Staff Physician] - - Patient Instructions Additional Instructions: keep clean with antibacterial soap and water bacitracin or neosporin and bandaid until healed, always wear socks DO NOT GO barefoot or wear sandals or flip flops until the wound is healed puncture wounds can easily become infected, if you notice any redness, increased pain or drainage follow with the electronic page makeup system operator - Post Discharge Activity
[2018-02-06] MEDS ORDERED: ACETAMINOPHEN 325 MG TABLET (FP) ONE (12:36)
== END 2018-02-06 13:17 | disposition home or self-care (01) ==
LOC: JERFT 11:33
PROC: 3E0234Z Introduction of Serum, Toxoid and Vaccine into Muscle, Percutaneous Approach (ICD-10-PCS; principal; 2018-02-06)
DX: S91.332A Puncture wound without foreign body, left foot, initial encounter (principal); W22.8XXA Striking against or struck by other objects, initial encounter; Y93.89 Activity, other specified; Y92.9 Unspecified place or not applicable; Y99.0 Civilian activity done for income or pay; Z87.891 Personal history of nicotine dependence; E78.00 Pure hypercholesterolemia, unspecified; K21.9 Gastro-esophageal reflux disease without esophagitis
CPT/HCPCS: 90715; 99281-25

== ENCOUNTER 2018-05-08 08:44 | Day surgery (SDC) | payer OTHER ==
[2018-05-05 14:24] VITALS: BMI 24.1
[2018-05-08] MEDS ORDERED: MIDAZOLAM HCL 2 MG/2 ML SINGLE DOSE VIAL ONE (12:05)
[2018-05-08] MEDS ORDERED: PROPOFOL 20 ML ONE ×2 (12:05→12:21)
[2018-05-08] MEDS ORDERED: LIDOCAINE HCL/PF 2% SDV 5ML VIAL ONE (12:06)
--- NOTE | 2018-05-08 12:35 | OP ---
Operative Note - Note: Operative Date: 05/08/18 Pre-Operative Diagnosis: Rrenal stone Operation: Right ESWL Findings: 7 mm Right Kidney middle pole stone Surgeon: Torres Esparza Anesthesia: Fractional
[2018-05-08 13:55] VITALS: BP 141/83; PULSE 63; TEMP 98
--- NOTE | 2018-05-09 07:35 | OP ---
DATE OF OPERATION: 05/08/2018 PREOPERATIVE DIAGNOSIS: Right renal stone. POSTOPERATIVE DIAGNOSIS: Right renal stone. PROCEDURE: Right extracorporeal shock wave lithotripsy. ATTENDING: Mk Bang MD ANESTHESIA: Fractional. OPERATION: The patient was brought in the operating room, placed in supine position on the operating room table. Ultrasonography and fluoroscopy were performed. At this point, fractional anesthesia was administered as well as preoperative antibiotics. Shock wave lithotripsy was then performed, 2500 impulses at 17 joules of power were administered to the 7-mm right mid-pole stone. Excellent fragmentation was noted under real time ultrasonography and fluoroscopy. No complications were noted. MK BANG M.D. [id number]
== END 2018-05-08 13:58 | disposition home or self-care (01) ==
LOC: JASU-SURG 08:44
PROVIDERS: ATTEND Urology
PROC: 0TF3XZZ Fragmentation in Right Kidney Pelvis, External Approach (ICD-10-PCS; principal; 2018-05-08 11:00)
DX: N20.0 Calculus of kidney (principal)

== ENCOUNTER 2018-06-05 06:30 | Day surgery (SDC) | payer OTHER ==
[2018-06-02 11:52] VITALS: BMI 23.3
[2018-06-05] MEDS ORDERED: PROPOFOL 20 ML ONE ×2 (08:13→08:35)
[2018-06-05] MEDS ORDERED: MIDAZOLAM HCL 2 MG/2 ML SINGLE DOSE VIAL ONE ×2 (08:13→08:23)
[2018-06-05] MEDS ORDERED: DEXAMETHASONE SOD PHOSPHATE 4 MG/1 ML VIAL ONE (08:21)
--- NOTE | 2018-06-05 09:11 | OP ---
Operative Note - Note: Operative Date: 06/05/18 Pre-Operative Diagnosis: Left renal stone Operation: Left ESWL Findings: 7 mm Left kidney mid pole renal stone Post-Operative Diagnosis: Same as Pre-op Surgeon: oTrres Esparza Anesthesia: Fractional Estimated Blood Loss (mls): 0 Drains & Tubes with Location: none
[2018-06-05] MEDS ORDERED: oxyCODONE HCL 5 MG TABLET PO PRN ×2 (09:52)
[2018-06-05] MEDS ORDERED: ONDANSETRON 4 MG/2 ML VIAL IVPUSH PRN (09:52)
[2018-06-05] MEDS ORDERED: LACTATED RINGERS SOLUTION 1,000 ML IV SCH (10:00)
[2018-06-05 16:15] VITALS: BP 128/57; PULSE 76; TEMP 97.6
--- NOTE | 2018-07-09 15:05 | OP ---
DATE OF OPERATION: 06/05/2018 PREOPERATIVE DIAGNOSIS: Left renal stone. POSTOPERATIVE DIAGNOSIS: Left renal stone. PROCEDURE: Left extracorporeal shockwave lithotripsy. ATTENDING: Mk Bang MD ANESTHESIA: Fractional. OPERATION: The patient was brought in the operating room, placed in supine position on the operating room table. Ultrasonography and fluoroscopy were performed. A 7-mm left renal stone was identified in the midpole. Anesthesia and preoperative antibiotics were then administered. Shockwave lithotripsy was then started. Excellent fragmentation of the 7-mm left renal stone was noted under real-time ultrasonography and fluoroscopy. No complications were noted. The patient tolerated the procedure very well. DISPOSITION OF THE PATIENT: To recovery room. MK BANG M.D. [id number]
== END 2018-06-05 12:15 | disposition home or self-care (01) ==
LOC: JASU-SURG 06:30
PROVIDERS: ATTEND Urology
PROC: 0TF4XZZ Fragmentation in Left Kidney Pelvis, External Approach (ICD-10-PCS; principal; 2018-06-05 08:45)
DX: N20.0 Calculus of kidney (principal)
CPT/HCPCS: 94760

== ENCOUNTER 2018-06-10 13:47 | Emergency (ER) | payer OTHER ==
[2018-06-10 14:00] VITALS: BMI 23.3
--- NOTE | 2018-06-10 14:34 | PDOC ---
History of Present Illness - General Chief Complaint: Pain, Acute Stated Complaint: CHEST PAIN Time Seen by Provider: 06/10/18 14:06 - History of Present Illness Initial Comments: 06/10/18 15:15 Patient is a 58 year old female with past medical history of HTN, HLD and b/l nephrolithiasis s/p ESWL, presented with epigastric burning for 1 day. Patient described pain as burning, "gassy", 8/10, radiating from bilateral flank to epigastric area, not related to food intake, no medications taken. Patient recently had ESWL done three days ago, and reported feeling fine after the surgery. Yesterday, patient started having constant epigastric pain that was accompanied by nausea, but no vomiting, fever, chills, diarrhea or constipation , no dysuria or hematuria. Past History - Past Medical History Allergies/Adverse Reactions: Allergies Allergy/AdvReac Type Severity Reaction Status Date / Time shellfish derived Allergy Severe Difficulty Verified 06/10/18 13:56 Breathing aspirin Allergy Verified 06/10/18 13:56 Home Medications: Ambulatory Orders Amlodipine Besylate 5 mg PO DAILY 05/05/18 Pantoprazole Sodium [Protonix -] 40 mg PO DAILY #14 tablet.ec 06/10/18 Pravastatin Sodium [Pravachol (Nf)] 40 mg PO DAILY 06/10/18 Ranitidine [Zantac -] 150 mg PO BID #28 tablet 06/10/18 Anemia: No Asthma: Yes Cancer: No Cardiac Disorders: No CVA: No COPD: No CHF: No Dementia: No Diabetes: No GI Disorders: Yes (ACID REFLUX) Disorders: Yes (RENAL COLIC) HTN: Yes Hypercholesterolemia: Yes Kidney Stones: Yes Liver Disease: No Seizures: No Thyroid Disease: No - Surgical History Appendectomy: No Cardiac Surgery: No Cholecystectomy: No Lung Surgery: No Neurologic Surgery: No Orthopedic Surgery: Yes (BILATERAL FOOT SURGERY) - Immunization History Immunization Up to Date: Yes - Suicide/Smoking/Psychosocial Hx Smoking Status: No Smoking History: Never smoked Have you smoked in the past 12 months: No Number of Cigarettes Smoked Daily: 0 If you are a former smoker, when did you quit?: 2009 Hx Alcohol Use: No Drug/Substance Use Hx: No Substance Use Type: None Hx Substance Use Treatment: No *Physical Exam - Vital Signs Last Vital Signs Temp Pulse Resp BP Pulse Ox 98.1 F 108 H 24 H 178/76 H 99 06/10/18 13:50 06/10/18 13:50 06/10/18 13:50 06/10/18 13:50 06/10/18 13:50 - Physical Exam Comments: 06/10/18 15:29 General: awake, alert, oriented, not in acute distress Head: no signs of head trauma HEENT: PERRLA, EOMI, sclerae anicteric, no nasal discharge, non-erythematous oropharynx, dry mucous membranes Neck:soft, supple, trachea midline, without thyromegaly Lung:clear to auscultation bilaterally Heart:regular rate and rhythm, normal S1/S2, no m,r,g Abdomen: soft, +epigastric tenderness, nondistended, NABS Ext: +2 pulses, no peripheral edema Moderate Sedation - Procedure Monitoring Vital Signs: Procedure Monitoring Vital Signs Temperature 98.1 F 06/10/18 13:50 Pulse Rate 108 H 06/10/18 13:50 Respiratory Rate 24 H 06/10/18 13:50 Blood Pressure 178/76 H 06/10/18 13:50 O2 Sat by Pulse Oximetry (%) 99 06/10/18 13:50 ED Treatment Course - LABORATORY CBC & Chemistry Diagram: 06/10/18 15:30 06/10/18 14:48 Medical Decision Making - Medical Decision Making 06/10/18 14:33 Patient is a 58 year old female with past medical history of HTN, HLD and b/l nephrolithiasis s/p ESWL, presented with epigastric burning for 1 day. DDx include but not limited to ACS, GERD, gastritis, cholelithiasis, SBO, pancreatitis CBC, CMP, cardiac profile abdominal xray/ RUQ US IV NS IV reglan IV pepcid maalox 06/10/18 20:20 Abdominal xray - no acute pathology RUQ US - no gallstones, no hydronephrosis; upper pole and mid pole right renal cyst UA still pending Patient reported improvement of epigastric discomfort able to tolerate PO 06/10/18 21:08 UA showed +3 blood and 145 RBC. This is likely from patient's nephrolithiasis and lithotripsy done last Tuesday. Patient has follow-up with Dr. Esparza next week. Patient reports improvement of epigastric pain and bloating. No CVA tenderness, no epigastric tenderness 06/10/18 23:06 Patient reported epigastric pain again CT scan of abdomen and pelvis with contrast done Patient developed scattered urticaria on the face after contrast given IV Benadryl 25mg given *DC/Admit/Observation/Transfer Diagnosis at time of Disposition: Gastritis GERD (gastroesophageal reflux disease) Qualifiers: Esophagitis presence: esophagitis presence not specified Qualified Code(s): K21.9 - Gastro-esophageal reflux disease without esophagitis - Discharge Dispostion Disposition: HOME Condition at time of disposition: Improved Decision to Admit order: No - Prescriptions Prescriptions: Pantoprazole Sodium [Protonix -] 40 mg PO DAILY #14 tablet.ec Ranitidine [Zantac -] 150 mg PO BID #28 tablet - Referrals Referrals: Matthew Gonzalez [Primary Care Provider] - Aníbal Cleaning DO [Staff Physician] - - Patient Instructions Printed Discharge Instructions: DI for Gastroesophageal Reflux Disease (GERD), DI for Gastritis Additional Instructions: You were seen because you had belly pain and bloating. Tests were done which were negative of any emergent concerns. Please take the following medication: 1. Protonix 40mg daily for 2 weeks. 2. Zantac 150mg twice a day for 2 weeks. Follow-up with the water treatment technician. If you do not have one, you may call Dr. Cleaning's office to schedule an appointment. Please follow-up with your primary care doctor within 2 days. Follow-up with Dr. Esparza (urologist) as scheduled. Call 911 or go to the ED if with any worsening fever, chills, headache, chest pain, shortness of breath, belly pain or any new concerns noted. Print Language: SWAZI - Post Discharge Activity Forms/Work/School Notes: Back to Work
[2018-06-10] MEDS ORDERED: FAMOTIDINE 20 MG/50 ML IVPB 20 MG/50 ML MG IVPB ONE ×2 (14:39→14:49)
[2018-06-10] MEDS ORDERED: MAG HYDROX/AL HYDROX/SIMETH 30 ML UNIT-DOSE CUP PO ONE (14:39)
[2018-06-10] MEDS ORDERED: MAG HYDROX/AL HYDROX/SIMETH 30 ML UNIT-DOSE CUP ONE (14:49)
[2018-06-10] MEDS ORDERED: METOCLOPRAMIDE HCL INJECTION 10 MG/2 ML VIAL IVPUSH ONE (15:21)
[2018-06-10] MEDS ORDERED: SODIUM CHLORIDE 1,000 ML IV STA (15:21)
[2018-06-10] MEDS ORDERED: METOCLOPRAMIDE HCL INJECTION 10 MG/2 ML VIAL ONE (15:41)
[2018-06-10 15:55] LABS: BASO % 1.1 % (0-2.0); EOS % 0.4 % (0-4.5); HEMATOCRIT 40.2 % (32.4-45.2); HEMOGLOBIN 13.1 GM/dL (10.7-15.3); LYMPH % 12.5 % (8-40); MCH 28.4 pg (25.7-33.7); MCHC 32.5 g/dl (32.0-36.0); MEAN CELL VOLUME 87.3 fl (80-96); MEAN PLT VOLUME 9.5 fl (7.5-11.1); MONO % 7.6 % (3.8-10.2); NEUT % 78.4 % (42.8-82.8); PLATELET COUNT 166 K/MM3 (134-434); RDW 13.6 % (11.6-15.6); WHITE BLOOD COUNT 6.5 K/mm3 (4.0-10.0)
--- NOTE | 2018-06-10 16:08 | PDOC ---
Attending Attestation - Resident Resident Name: Gabriela Buckner - ED Attending Attestation I have performed the following: I have examined & evaluated the patient, The case was reviewed & discussed with the resident, I agree w/resident's findings & plan, Exceptions are as noted - HPI HPI: 06/10/18 16:00 58 F with h/o HTN, HLD, bilateral kidney stones, presenting with epigastric pain , bloating, and nausea. Pt states that she had a lithotripsy on the L side about 4 days ago. Since then, pt has had abdominal bloating with nausea. She states that she feels very "gassy", with a bloating sensation in her upper abdomen. Pt also reports nausea without vomiting. Denies any diarrhea/ constipation. Denies CP/SOB. Endorses mild residual flank pain since her lithotripsy, denies any new flank pain. No dysuria. No F/C. - Physicial Exam PE: 06/10/18 16:08 "GENERAL: Awake, alert, and fully oriented, in no acute distress. HEAD: No signs of trauma EYES: PERRLA, EOMI, sclera anicteric, conjunctiva clear ENT: Auricles normal inspection, hearing grossly normal, nares patent, oropharynx clear without exudates. Moist mucosa NECK: Nontender, no stepoffs, Normal ROM, supple, no lymphadenopathy, JVD, or masses LUNGS: Breath sounds equal, clear to auscultation bilaterally. No wheezes, and no crackles HEART: Regular rate and rhythm, normal S1 and S2, no murmurs, rubs or gallops ABDOMEN: Soft, mild epigastric TTP, minimally distended, normoactive bowel sounds. No guarding, no rebound. No masses EXTREMITIES: Normal range of motion, no edema. No clubbing or cyanosis. No cords, erythema, or tenderness NEUROLOGICAL: Cranial nerves II through XII intact. 5/5 strength and sensation in all extremities, Normal speech, normal gait, normal cerebellar function SKIN: Warm, Dry, normal turgor, no rashes or lesions noted. - Medical Decision Making 06/10/18 16:08 58 F with epigastric pain, bloating. Likely gas pain. Mildly distended but no other clinical signs of obstruction. Pt with mild epigastric TTP on exam. Negative mina's but will r/o reji with US. - Labs, lipase - RUQ sono - IVF, GI cocktail 06/10/18 17:14 Labs wnl Pt signed out to oncoming attending at 5pm, pending US and XR and re-evaluation
[2018-06-10 16:44] LABS: ALK PHOS 91 U/L (45-117); ANION GAP 11 MMOL/L (8-16); BILIRUBIN,TOTAL 0.5 mg/dL (0.2-1); BLOOD UREA NITROGEN 11 mg/dL (7-18); CALCIUM 9.1 mg/dL (8.5-10.1); CHLORIDE 104 mmol/L (98-107); CO2 25 mmol/L (21-32); CREATININE 0.6 mg/dL (0.55-1.3); GLUCOSE,RANDOM 91 mg/dL (74-106); POTASSIUM 3.6 mmol/L (3.5-5.1); SGOT/AST 24 U/L (15-37); SGPT/ALT 42 U/L (13-61); SODIUM 139 mmol/L (136-145); TOT PROT 7.1 g/dl (6.4-8.2)
[2018-06-10 17:11] LABS: LIPASE 118 U/L (73-393)
[2018-06-10] MEDS ORDERED: ACETAMINOPHEN 1000 MG/100 ML VIAL (NON FORMULARY) IVPB ONE ×2 (18:49→23:05)
[2018-06-10] MEDS ORDERED: SUCRALFATE 1 GM TABLET (FP) PO ONE (19:05)
[2018-06-10] MEDS ORDERED: SIMETHICONE 80 MG TAB.CHEW (FP) PO ONE (19:29)
[2018-06-10 19:36] VITALS: BP 133/68; PULSE 79; TEMP 98.4
[2018-06-10] MEDS ORDERED: ACETAMINOPHEN INJECTION 100 ML IVPB ONE ×2 (19:37→23:09)
[2018-06-10] MEDS ORDERED: SUCRALFATE 1 GM TABLET (FP) ONE (19:37)
[2018-06-10 20:43] LABS: URINE APPEARANCE CLEAR; URINE BILIRUBIN NEGATIVE (<2.0 mg/dL); URINE COLOR LTYELLOW; URINE GLUCOSE (UA) NEGATIVE (NEGATIVE); URINE KETONE NEGATIVE (NEGATIVE); URINE LEUK ESTERASE NEGATIVE (NEGATIVE); URINE NITRITE NEGATIVE (NEGATIVE); URINE PROTEIN NEGATIVE (NEGATIVE); URINE UROBILINOGEN NEGATIVE mg/dL (0.2-1.0)
[2018-06-10 20:49] LABS: EPI CELLS RARE /HPF (FEW)
[2018-06-10] MEDS ORDERED: morphine CARPU-JECT 4 MG/1 ML DISP.SYRIN IVPUSH ONE (21:38)
[2018-06-10] MEDS ORDERED: MORPHINE SULFATE 2 MG/ML VIAL ONE (22:22)
--- NOTE | 2018-06-11 17:16 | EKG ---
Test Reason : Blood Pressure : / mmHG Vent. Rate : 099 BPM Atrial Rate : 100 BPM P-R Int : 152 ms QRS Dur : 070 ms QT Int : 342 ms P-R-T Axes : 050 017 056 degrees QTc Int : 438 ms NORMAL SINUS RHYTHM NORMAL ECG WHEN COMPARED WITH ECG OF 01-JAN-2017 09:30, VENT. RATE HAS INCREASED BY 40 BPM Confirmed by THOMAS GAINES MD ([id number]) on 06/11/2018 5:16:18 PM Referred By: Confirmed By:THOMAS GAINES MD
== END 2018-06-11 00:21 | disposition home or self-care (01) ==
LOC: JER 13:47
DX: K29.70 Gastritis, unspecified, without bleeding (principal); K21.9 Gastro-esophageal reflux disease without esophagitis; Z87.442 Personal history of urinary calculi
CPT/HCPCS: 36415; 74019-TC-FY; 74177-TC; 76705-TC; 80053; 81003; 81015; 82550; 83690; 84484; 85025; 87086; 93005; 93010; 99284-25; J0131; J7030

== ENCOUNTER 2019-06-04 07:32 | Day surgery (SDC) | payer OTHER ==
[2019-05-29 17:49] VITALS: BMI 23.2
[2019-06-04] MEDS ORDERED: MIDAZOLAM HCL 2 MG/2 ML SINGLE DOSE VIAL ONE ×2 (11:07→11:18)
--- NOTE | 2019-06-04 11:38 | OP ---
Operative Note - Note: Operative Date: 06/04/19 Pre-Operative Diagnosis: Right renal stone Operation: Right ESWL Findings: 6 mm lower pole Right renal stone Post-Operative Diagnosis: Same as Pre-op Surgeon: Torres Esparza Anesthesia: Fractional Estimated Blood Loss (mls): 0 Drains, Volume Out (mls): 0 Operative Report Dictated: Yes
[2019-06-04 14:49] VITALS: BP 149/66; PULSE 77; TEMP 97.4
--- NOTE | 2019-06-04 17:19 | OP ---
DATE OF OPERATION: 06/04/2019 PREOPERATIVE DIAGNOSIS: Right renal stone. POSTOPERATIVE DIAGNOSIS: Right renal stone. PROCEDURE: Right extracorporeal shock-wave lithotripsy. ATTENDING: Mk Bang MD ANESTHESIA: Fractional. DESCRIPTION OF PROCEDURE: Patient was brought in the operating room and placed in a supine position on the operating room table. Ultrasonography and fluoroscopy were performed. A 6-mm right lower pole stone was identified. Anesthesia need preoperative antibiotics were then administered. Shock-wave lithotripsy was then performed. Excellent fragmentation of the stone was noted under real time ultrasonography and fluoroscopy. No complications were noted. DISPOSITION: To recovery room. MK BAGN M.D. [id number]
== END 2019-06-04 14:30 | disposition home or self-care (01) ==
LOC: JASU-SURG 07:32
PROVIDERS: ATTEND Urology
PROC: 0TF3XZZ Fragmentation in Right Kidney Pelvis, External Approach (ICD-10-PCS; principal; 2019-06-04 10:15)
DX: N20.0 Calculus of kidney (principal)

== ENCOUNTER 2019-06-18 07:08 | Day surgery (SDC) | payer OTHER ==
[2019-06-15 11:17] VITALS: BMI 23.2
[2019-06-18] MEDS ORDERED: MIDAZOLAM HCL 2 MG/2 ML SINGLE DOSE VIAL ONE (07:27)
[2019-06-18] MEDS ORDERED: DEXMEDETOMIDINE HCL 200 MCG/2 ML IVPB ONE (07:34)
[2019-06-18] MEDS ORDERED: DEXAMETHASONE SOD PHOSPHATE 4 MG/1 ML VIAL ONE (08:01)
[2019-06-18] MEDS ORDERED: KETOROLAC TROMETHAMINE 30 MG/1 ML VIAL ONE (08:01)
--- NOTE | 2019-06-18 09:12 | OP ---
Operative Note - Note: Operative Date: 06/18/19 Pre-Operative Diagnosis: Left renal stones Operation: Lerft ESWL Findings: 3 mm x 2 lower pole left renal stones Post-Operative Diagnosis: Same as Pre-op Surgeon: Torres Esparza Anesthesia: Fractional Estimated Blood Loss (mls): 0 Drains, Volume Out (mls): 0 Operative Report Dictated: Yes
[2019-06-18 09:14] VITALS: TEMP 97.4
[2019-06-18 11:50] VITALS: BP 100/55; PULSE 70
--- NOTE | 2019-06-18 18:17 | OP ---
DATE OF OPERATION: 06/18/2019 PREOPERATIVE DIAGNOSIS: Left renal stones. POSTOPERATIVE DIAGNOSIS: Left renal stones. PROCEDURE: Left extracorporeal shock-wave lithotripsy. ATTENDING: Mk Bang MD ANESTHESIA: Fractional. DESCRIPTION OF PROCEDURE: Patient was brought in the operating room and placed in supine position on the operating room table. Ultrasonography and fluoroscopy were performed. Two stones in the left kidney each measuring 3 mm were noted in the left lower pole. At this point, anesthesia and preoperative antibiotics were administered. Shock-wave lithotripsy was then started; 1500 impulses at 18 joules of power were administered to each stone for a total of 3000 impulses. The patient tolerated the procedure very well. There were no complications noted. DISPOSITION: To the recovery room. MK BANG M.D. [id number]
== END 2019-06-18 11:30 | disposition home or self-care (01) ==
LOC: JASU-SURG 07:08
PROVIDERS: ATTEND Urology
PROC: 0TF4XZZ Fragmentation in Left Kidney Pelvis, External Approach (ICD-10-PCS; principal; 2019-06-18 08:00)
DX: N20.0 Calculus of kidney (principal)

== ENCOUNTER 2020-07-16 12:56 | Emergency (ER) | payer OTHER ==
[2020-07-16 13:14] VITALS: BMI 23.6
[2020-07-16 14:40] LABS: BASO % 0.4 % (0-2.0); EOS % 0.6 % (0-4.5); HEMATOCRIT 37.2 % (32.4-45.2); HEMOGLOBIN 12.2 GM/dL (10.7-15.3); LYMPH % 14.1 % (8-40); MCH 27.4 pg (25.7-33.7); MCHC 32.9 g/dl (32.0-36.0); MEAN CELL VOLUME 83.4 fl (80-96); MEAN PLT VOLUME 9.1 fl (7.5-11.1); NEUT % 77.9 % (42.8-82.8); PLATELET COUNT 278 K/MM3 (134-434); RBC 4.46 M/mm3 (3.60-5.2); RDW 15.2 % (11.6-15.6); WHITE BLOOD COUNT 8.7 K/mm3 (4.0-10.0)
[2020-07-16 15:03] LABS: ALBUMIN 4.8 g/dl (3.4-5.0); BLOOD UREA NITROGEN 14.2 mg/dL (7-18); CALCIUM 10.2 mg/dL (8.5-10.1)
[2020-07-16 15:06] LABS: CREATININE 0.6 mg/dL (0.55-1.3)
[2020-07-16 15:07] LABS: BILIRUBIN,TOTAL 0.5 mg/dL (0.2-1); TOT PROT 8.6 g/dl (6.4-8.2)
[2020-07-16 15:23] LABS: ERYTHROCYTE SEDIMENTATION RATE 38 mm/hr (0-30)
[2020-07-16 16:45] LABS: EPI CELLS 6 /uL (0-25.1); HYALINE CASTS 0 /uL (0-3.1); PH,URINE 7.5 (5.0-8.0); URINE APPEARANCE CLOUDY; URINE BACTERIA 106 /uL (0-1359); URINE BILIRUBIN NEGATIVE (NEGATIVE); URINE COLOR YELLOW; URINE GLUCOSE (UA) NEGATIVE (NEGATIVE); URINE KETONE TRACE (NEGATIVE); URINE LEUK ESTERASE NEGATIVE (NEGATIVE); URINE NITRITE NEGATIVE (NEGATIVE); URINE PROTEIN NEGATIVE (NEGATIVE); URINE RBC 19 /uL (0-23.9); URINE UROBILINOGEN 0.2 mg/dL (0.2-1.0); URINE WBC 7 /uL (0-25.8)
[2020-07-16 16:51] VITALS: BP 142/72; PULSE 84; TEMP 98
== END 2020-07-16 16:52 | disposition home or self-care (01) ==
LOC: JER 12:56
PROC: 3E0333Z Introduction of Anti-inflammatory into Peripheral Vein, Percutaneous Approach (ICD-10-PCS; principal; 2020-07-16)
DX: M54.5 Low back pain (principal)
CPT/HCPCS: 36415; 71046-TC-FY; 80053; 81003; 83605; 85025; 85651; 86140; 99284-25; J0131

== ENCOUNTER 2020-12-22 05:46 | Day surgery (SDC) | payer OTHER ==
[2020-12-19 10:46] VITALS: BMI 24.9
[2020-12-22] MEDS ORDERED: BUPIVACAINE HCL/PF 0.25% (2.5MG/ML) 10 ML VIAL ONE (07:09)
[2020-12-22] MEDS ORDERED: SUCCINYLCHOLINE CHLORIDE 200 MG/10 ML SYRINGE ONE (07:28)
[2020-12-22] MEDS ORDERED: PROPOFOL 20 ML ONE ×4 (07:28→08:46)
[2020-12-22] MEDS ORDERED: MIDAZOLAM HCL 2 MG/2 ML SINGLE DOSE VIAL ONE (07:29)
[2020-12-22] MEDS ORDERED: DEXAMETHASONE SOD PHOSPHATE 4 MG/1 ML VIAL ONE (07:34)
[2020-12-22] MEDS ORDERED: ONDANSETRON 4 MG/2 ML VIAL ONE ×2 (07:34→09:09)
[2020-12-22] MEDS ORDERED: ceFAZolin SODIUM 1 GM VIAL ONE (07:47)
[2020-12-22] MEDS ORDERED: EPHEDRINE SULFATE/0.9% NACL/PF 50 MG/10 ML SYRINGE NR ONE (08:08)
[2020-12-22] MEDS ORDERED: HYDROmorphone HCL/PF 1 MG/ML VIAL ONE (08:22)
[2020-12-22] MEDS ORDERED: KETOROLAC TROMETHAMINE 30 MG/1 ML VIAL ONE (08:41)
[2020-12-22] MEDS ORDERED: LACTATED RINGERS SOLUTION 1,000 ML IV SCH (10:45)
[2020-12-22] MEDS ORDERED: oxyCODONE HCL 5 MG TABLET PO PRN ×2 (10:45)
[2020-12-22] MEDS ORDERED: ONDANSETRON 4 MG/2 ML VIAL IVPUSH PRN (10:45)
[2020-12-22 11:07] VITALS: TEMP 97.8
[2020-12-22] MEDS ORDERED: PANTOPRAZOLE 40 MG TABLET ONE (12:08)
[2020-12-22] MEDS ORDERED: MAG HYDROX/AL HYDROX/SIMETH 30 ML UNIT-DOSE CUP ONE (12:08)
[2020-12-22 12:34] VITALS: BP 128/64; PULSE 82
== END 2020-12-22 12:40 | disposition home or self-care (01) ==
LOC: FASU 05:46
PROVIDERS: ATTEND Orthopaedic Surgery Sports Medicine
PROC: 0SBC4ZZ Excision of Right Knee Joint, Percutaneous Endoscopic Approach (ICD-10-PCS; principal; 2020-12-22 07:39)
PROC: 0SNC4ZZ Release Right Knee Joint, Percutaneous Endoscopic Approach (ICD-10-PCS; 2020-12-22 07:39)
DX: M24.661 Ankylosis, right knee (principal)
CPT/HCPCS: 88304-TC; 94760

== ENCOUNTER 2021-06-01 04:15 | Day surgery (SDC) | payer OTHER ==
[2021-05-26 15:56] VITALS: BMI 22.6
[2021-06-01 11:15] VITALS: BP 155/78; PULSE 72; TEMP 97.9
== END 2021-06-01 11:50 | disposition home or self-care (01) ==
LOC: JASU-SURG 04:15
PROVIDERS: ATTEND Urology
PROC: 0TF4XZZ Fragmentation in Left Kidney Pelvis, External Approach (ICD-10-PCS; principal; 2021-06-01 08:30)
DX: N20.0 Calculus of kidney (principal)

== ENCOUNTER 2021-06-15 05:16 | Day surgery (SDC) | payer OTHER ==
[2021-06-12 11:45] VITALS: BMI 23.4
[2021-06-15] MEDS ORDERED: PROPOFOL 20 ML ONE (11:30)
[2021-06-15] MEDS ORDERED: KETOROLAC TROMETHAMINE 30 MG/1 ML VIAL ONE (11:30)
[2021-06-15] MEDS ORDERED: MIDAZOLAM HCL 2 MG/2 ML SINGLE DOSE VIAL ONE (11:30)
[2021-06-15] MEDS ORDERED: GLYCOPYRROLATE 0.2 MG/1 ML VIAL ONE (11:30)
[2021-06-15] MEDS ORDERED: LIDOCAINE HCL/PF 2% SDV 5ML VIAL ONE (11:31)
[2021-06-15 14:26] VITALS: BP 125/70; PULSE 90; TEMP 97.6
== END 2021-06-15 14:50 | disposition home or self-care (01) ==
LOC: JASU-SURG 05:16
PROVIDERS: ATTEND Urology
PROC: 0TF3XZZ Fragmentation in Right Kidney Pelvis, External Approach (ICD-10-PCS; principal; 2021-06-15 10:30)
DX: N20.0 Calculus of kidney (principal)

== ENCOUNTER 2022-11-01 04:10 | Day surgery (SDC) | payer OTHER ==
[2022-10-28 11:33] VITALS: BMI 23.6
[2022-11-01] MEDS ORDERED: MIDAZOLAM HCL 2 MG/2 ML SINGLE DOSE VIAL ONE (14:50)
[2022-11-01 15:52] VITALS: RESP 18
[2022-11-01 16:36] VITALS: BP 134/80; PULSE 83; TEMP 97.7
== END 2022-11-01 17:00 | disposition home or self-care (01) ==
LOC: JASU-SURG 04:10
PROVIDERS: ATTEND Urology
PROC: 0TF3XZZ Fragmentation in Right Kidney Pelvis, External Approach (ICD-10-PCS; principal; 2022-11-01 14:00)
DX: N20.0 Calculus of kidney (principal)

== ENCOUNTER 2022-11-30 03:47 | Day surgery (SDC) | payer OTHER ==
[2022-11-22 15:30] VITALS: BMI 24.0
[2022-11-30 12:36] VITALS: RESP 20
[2022-11-30] MEDS ORDERED: PROPOFOL 20 ML ONE (13:23)
[2022-11-30] MEDS ORDERED: MIDAZOLAM HCL 2 MG/2 ML SINGLE DOSE VIAL ONE (13:23)
[2022-11-30] MEDS ORDERED: LIDOCAINE HCL/PF 2% SDV 5ML VIAL ONE (13:24)
[2022-11-30 15:17] VITALS: BP 141/68; PULSE 74; TEMP 97.7
== END 2022-11-30 16:15 | disposition home or self-care (01) ==
LOC: JASU-SURG 03:47
PROVIDERS: ATTEND Urology
PROC: 0TF4XZZ Fragmentation in Left Kidney Pelvis, External Approach (ICD-10-PCS; principal; 2022-11-30 13:00)
DX: N20.0 Calculus of kidney (principal)

== ENCOUNTER 2023-02-25 21:18 | Emergency (ER) | payer OTHER ==
[2023-02-25 21:24] VITALS: BMI 24.0
[2023-02-25] MEDS ORDERED: ACETAMINOPHEN 1000 MG/100 ML BAG IVPB ONE (21:53)
[2023-02-25 22:22] LABS: EPI CELLS 4 /uL (0-25.1); HYALINE CASTS 0 /uL (0-3.1); PH,URINE 5.5 (5.0-8.0); URINE APPEARANCE CLOUDY; URINE BACTERIA 0 /uL (0-1359); URINE BILIRUBIN NEGATIVE (NEGATIVE); URINE COLOR ORANGE; URINE GLUCOSE (UA) NEGATIVE (NEGATIVE); URINE KETONE NEGATIVE (NEGATIVE); URINE LEUK ESTERASE TRACE (NEGATIVE); URINE NITRITE NEGATIVE (NEGATIVE); URINE PROTEIN 1+ (NEGATIVE); URINE RBC 5669 /uL (0-23.9); URINE UROBILINOGEN 0.2 mg/dL (0.2-1.0); URINE WBC 32 /uL (0-25.8)
[2023-02-25] MEDS ORDERED: ACETAMINOPHEN INJECTION 100 ML IVPB ONE (22:22)
[2023-02-25 22:41] LABS: BASO % 0.7 % (0-2.0); HEMOGLOBIN 13.1 GM/dL (10.7-15.3); LYMPH % 15.7 % (8-40); MCHC 31.9 g/dl (32.0-36.0); MEAN CELL VOLUME 87.8 fl (80-96); MEAN PLT VOLUME 10.2 fl (7.5-11.1); MONO % 7.3 % (3.8-10.2); NEUT % 75.3 % (42.8-82.8); PLATELET COUNT 205 10^3/uL (134-434); RBC 4.67 M/mm3 (3.60-5.2); RDW 14.1 % (11.6-15.6)
[2023-02-25 22:50] LABS: POTASSIUM 3.8 mmol/L (3.5-5.1)
[2023-02-25 22:52] LABS: CALCIUM 9.3 mg/dL (8.5-10.1)
[2023-02-25 22:53] LABS: ALBUMIN 3.9 g/dl (3.4-5.0); BLOOD UREA NITROGEN 17.4 mg/dL (7-18)
[2023-02-25 22:57] LABS: BILIRUBIN,TOTAL 0.4 mg/dL (0.2-1); TOT PROT 7.2 g/dl (6.4-8.2)
[2023-02-26 01:03] VITALS: BP 134/73; PULSE 74; RESP 16; TEMP 97.7
== END 2023-02-26 01:25 | disposition home or self-care (01) ==
LOC: JER 21:18
PROC: 3E033NZ Introduction of Analgesics, Hypnotics, Sedatives into Peripheral Vein, Percutaneous Approach (ICD-10-PCS; principal; 2023-02-25)
DX: R31.9 Hematuria, unspecified (principal); R30.0 Dysuria; R10.9 Unspecified abdominal pain; N20.0 Calculus of kidney; N39.0 Urinary tract infection, site not specified; R10.30 Lower abdominal pain, unspecified
CPT/HCPCS: 36415; 76775-TC; 76856-TC; 80053; 81003; 85025; 87086; 99284-25

== ENCOUNTER 2023-04-18 05:09 | Day surgery (SDC) | payer OTHER ==
[2023-04-14 14:15] VITALS: BMI 23.6
[2023-04-18] MEDS ORDERED: FENTANYL CITRATE/PF 50 MCG/ML VIAL ONE ×4 (11:27→11:58)
[2023-04-18] MEDS ORDERED: MIDAZOLAM HCL 2 MG/2 ML SINGLE DOSE VIAL ONE ×2 (11:27→12:04)
[2023-04-18] MEDS ORDERED: ONDANSETRON 4 MG/2 ML VIAL ONE (11:28)
[2023-04-18 12:37] VITALS: RESP 20
[2023-04-18] MEDS ORDERED: ACETAMINOPHEN 325 MG TABLET (FP) PO ONE (14:18)
[2023-04-18 14:22] VITALS: BP 117/52; PULSE 68; TEMP 98.2
== END 2023-04-18 14:58 | disposition home or self-care (01) ==
LOC: JASU-SURG 05:09
PROVIDERS: ATTEND Urology
PROC: 0TF4XZZ Fragmentation in Left Kidney Pelvis, External Approach (ICD-10-PCS; principal; 2023-04-18 11:42)
DX: N20.0 Calculus of kidney (principal)

== ENCOUNTER 2023-05-30 04:01 | Day surgery (SDC) | payer OTHER ==
[2023-05-23 11:55] VITALS: BMI 23.6
[2023-05-30 08:52] VITALS: RESP 20
[2023-05-30 11:42] VITALS: TEMP 97.7
[2023-05-30 12:58] VITALS: BP 120/60; PULSE 64
== END 2023-05-30 12:59 | disposition home or self-care (01) ==
LOC: JASU-SURG 04:01
PROVIDERS: ATTEND Urology
PROC: 0TF3XZZ Fragmentation in Right Kidney Pelvis, External Approach (ICD-10-PCS; principal; 2023-05-30 10:00)
DX: N20.0 Calculus of kidney (principal)